=== PATIENT | female | born 1975 | race Caucasian/White ===

== ENCOUNTER 2022-06-28 16:39 | Emergency (ER) | payer OTHER ==
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
[2022-06-28] MEDS ORDERED: Zofran 4 MG/2 ML VIAL ONE (16:54)
[2022-06-28] MEDS ORDERED: Hydromorphone 1 mg/ml Injection ONE ×2 (16:54→19:06)
[2022-06-28] MEDS: Zofran 4 MG/2 ML VIAL IV ONE (16:57)
[2022-06-28] MEDS: Hydromorphone 1 mg/ml Injection IV ONE ×2 (16:57→19:09)
[2022-06-28 18:01] LABS: Absolute Neutrophil Ct (ANC) 2.87 x10^3/uL (1.4-6.9); Basophil (Absolute #) 0.02 x10^3/uL (0-0.4); Eosinophil % 1.1 % (0.00-5.0); Eosinophil (Absolute #) 0.05 x10^3/uL (0-0.5); Hematocrit 38.4 % (35-47); Hemoglobin 13.1 g/dL (12.0-16.0); Lymphocytes % 26.8 % (24.0-44.0); Mean Cell Volume 96.7 fL (78-100); Mean Corpuscular Hgb Concent. 34.1 g/dL (32-36); Mean Platelet Volume 10.7 fL (7.5-11.0); Monocyte (Absolute #) 0.32 x10^3/uL (0.0-1.3); Monocytes % 7.1 % (0.0-12.0); Neutrophil % 64.2 % (36.0-66.0); Platelet Count 194 x10^3/uL (150-450); Red Blood Count 3.97 x10^6/uL (4.1-5.4); Red Cell Distribution Width 11.3 % (11.5-14.0); White Blood Count 4.5 x10^3/uL (4.0-10.5)
[2022-06-28 18:09] LABS: ALBUMIN 4.3 g/dL (3.5-5.0); ALKALINE PHOSPHATASE 56 U/L (38-126); ANION GAP 10.6 MEQ/L (5-15); BLOOD UREA NITROGEN 17 mg/dL (7-17); CHLORIDE 103 mmol/L (98-107); Calcium 8.6 mg/dL (8.4-10.2); Carbon Dioxide 26 mmol/L (22-30); Creatinine 1 0.76 mg/dL (0.52-1.04); EST GLOMERULAR FILTRATION RATE > 60.0 ML/MIN; Glucose 172 mg/dL (74-106); Potassium 4.1 mmol/L (3.5-5.1); SGOT/AST 22 U/L (14-36); SGPT/ALT 15 U/L (0-35); SODIUM 135 mmol/L (137-145); Total Protein 7.1 g/dL (6.3-8.2)
[2022-06-28 18:12] VITALS: O2SAT 99
[2022-06-28] MEDS ORDERED: Ativan 2 MG/1 ML VIAL ONE (18:13)
[2022-06-28] MEDS: Ativan 2 MG/1 ML VIAL IV ONE (18:14)
[2022-06-28 19:06] VITALS: BP 131/82
[2022-06-28] MEDS ORDERED: Sodium Chloride 0.9% 1000 ML 1,000 ML ONE (19:07)
[2022-06-28] MEDS: Sodium Chloride 0.9% 1000 ML 1,000 ML IV SCH (19:09)
[2022-06-28 19:43] VITALS: PULSE 83
[2022-06-28] MEDS ORDERED: DILAUDID 2 MG PO PRN (20:10)
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
== END 2022-06-28 19:46 | disposition home or self-care (01) ==
LOC: ED 16:39
DX: S42.291A Other displaced fracture of upper end of right humerus, initial encounter for closed fracture (principal); V87.7XXA Person injured in collision between other specified motor vehicles (traffic), initial encounter; M79.601 Pain in right arm; E10.9 Type 1 diabetes mellitus without complications; Z79.4 Long term (current) use of insulin; Z96.41 Presence of insulin pump (external) (internal); Z79.899 Other long term (current) drug therapy; Z72.0 Tobacco use
CPT/HCPCS: 36000; 36415; 73030; 73060; 80053; 82947; 85025; 96374; 96375; 96376; 99284; J1170; J2060; J2405